=== PATIENT | female | born 1955 | race Caucasian/White ===

== ENCOUNTER → 2018-08-18 12:08 | Outpatient (CLI) | payer OTHER, SELFPAY ==
--- NOTE | 2018-08-18 | DI.MG.S_ITS ---
BILATERAL DIGITAL SCREENING MAMMOGRAM 3D/2D WITH CAD: 08/18/2018 CLINICAL: Routine screening. Family history of breast cancer. Comparison is made to exams dated: 06/08/2017 mammogram, 03/22/2016 mammogram, and 11/21/2014 mammogram - [facility]. The tissue of both breasts is extremely dense, which lowers the sensitivity of mammography. Current study was also evaluated with a Computer Aided Detection (CAD) system. There are benign vascular calcifications in both breasts. No significant masses, calcifications, or other findings are seen in either breast. There has been no significant interval change. IMPRESSION: There is no mammographic evidence of malignancy. A 1 year screening mammogram is recommended. This exam was interpreted at Station ID: [id number]. NOTE: For mammograms, a report in lay terms will be sent to the patient. Approximately 15% of breast malignancies will not be visualized mammographically. In the management of a palpable breast mass, a negative mammogram must not discourage biopsy of a clinically suspicious lesion. Electronically Signed By: Timoteo [email or web address]:08/18/2018 18:25:07 letter sent: Normal Exam ACR BI-RADS Category 2: Benign Finding(s) 3342F
== END ==
PROVIDERS: PCP Family Medicine; Visit Provider Family Medicine
DX: Z12.31 Encounter for screening mammogram for malignant neoplasm of breast (principal); Z80.3 Family history of malignant neoplasm of breast; M81.0 Age-related osteoporosis without current pathological fracture; Z78.0 Asymptomatic menopausal state; Z82.62 Family history of osteoporosis
CPT/HCPCS: 77063; 77067; 77080

== ENCOUNTER → 2018-08-30 14:18 | Outpatient (CLI) | payer OTHER, SELFPAY ==
--- NOTE | 2018-08-30 | DI.RAD.S_ITS ---
PROCEDURE: XR CHEST 2V INDICATIONS: COUGH TECHNIQUE: 2 views of the chest were acquired. COMPARISON: None. FINDINGS: Surgical changes and devices: There are surgical clips in the gallbladder fossa. Lungs and pleura: There is a small nodular infiltrate in the left upper lobe. No pleural effusions or pneumothorax. Mediastinum: Mediastinal contours are normal. Heart size is normal. Bones and chest wall: No suspicious bony abnormalities. Soft tissues appear unremarkable. IMPRESSION: Small nodular infiltrate in the left upper lobe suspicious for developing pneumonia. Recommend a short interval followup standard 2 view chest x-ray after adequate treatment to rule out a lung nodule. Dictated by: Marie Ang M.D. on 08/30/2018 at 15:01 Approved by: Marie Ang M.D. on 08/30/2018 at 15:04
== END ==
PROVIDERS: PCP Family Medicine; Visit Provider Family Medicine
DX: R05 Cough (principal); R91.8 Other nonspecific abnormal finding of lung field; R52 Pain, unspecified
CPT/HCPCS: 71046; 87400

== ENCOUNTER → 2018-08-30 14:34 | Outpatient (REF) | payer OTHER, SELFPAY ==
[2018-08-30 14:59] LABS: Influenza A and B by PCR Rapid Negative (Negative)
== END ==
LOC: LAB 14:34
PROVIDERS: PCP Family Medicine; Visit Provider Family Medicine
DX: R05 Cough (principal); R52 Pain, unspecified
CPT/HCPCS: 87400

== ENCOUNTER → 2018-09-12 12:09 | Outpatient (CLI) | payer OTHER, SELFPAY ==
--- NOTE | 2018-09-12 | DI.CT.S_ITS ---
PROCEDURE: CT CHEST W CON INDICATIONS: Cough TECHNIQUE: After the administration of intravenous contrast, 5 mm thick sections acquired from the pulmonary apices to the posterior costophrenic angles. 7 mm thick coronal and sagittal MIP reformats were acquired. For radiation dose reduction, the following was used: automated exposure control, adjustment of mA and/or kV according to patient size. COMPARISON: [facility], CR, XR CHEST 2V, 08/30/2018, 14:37. FINDINGS: Image quality: Excellent. Lungs and pleura: No acute air space opacities. No pleural effusions or pneumothorax. Central and peripheral airways are patent and normal in caliber. Mediastinum: Heart size is normal. No pericardial effusion. No mediastinal or hilar adenopathy by size criteria. Thoracic aorta and central pulmonary arteries are normal in size. Esophagus is normal in caliber. No hiatal hernia. Bones and chest wall: No suspicious bony lesions. No vertebral body compression fractures. No axillary or supraclavicular adenopathy by size criteria. Thyroid gland is unremarkable. Abdomen: Visualized upper abdominal solid organs appear normal. Upper abdominal bowel loops are normal in caliber. IMPRESSION: 1. Lungs are clear. Previous area of questionable nodularity on chest x-ray is not visualized on current exam. Dictated by: Yarelis Lang M.D. on 09/12/2018 at 14:36 Approved by: Yarelis Lang M.D. on 09/12/2018 at 14:40
== END ==
PROVIDERS: PCP Family Medicine; Visit Provider Family Medicine
DX: R05 Cough (principal)
CPT/HCPCS: 71260; Q9967

== ENCOUNTER → 2018-09-29 14:45 | Outpatient (CLI) | payer OTHER, SELFPAY ==
--- NOTE | 2018-09-29 | DI.CT.S_ITS ---
PROCEDURE: CT SINUS SCREEN WO CON INDICATIONS: SINUITUS TECHNIQUE: Noncontrast 3.0 mm axial images acquired from the frontal sinuses to the mid-sella, with coronal and sagittal reformats. For radiation dose reduction, the following was used: automated exposure control, adjustment of mA and/or kV according to patient size. COMPARISON: None. FINDINGS: Image quality: Excellent. Maxillary Sinuses: No bony remodeling or destruction. Sinuses are clear. Ethmoid Air Cells: No bony remodeling or destruction. Sinuses are clear. Sphenoid Sinuses: No bony remodeling or destruction. Sinuses are clear. Frontal Sinuses: No bony remodeling or destruction. Sinuses are clear. Ostiomeatal Complexes: Ostiomeatal complexes are patent. No Bladimir cells. Miscellaneous: Visualized intra-orbital contents are normal. No liz bullosa or paradoxical turbinate curvature. No nasal septal deviation. IMPRESSION: No sinusitis found, source of current symptoms is not identified. Dictated by: Sawyer Hutton M.D. on 09/29/2018 at 15:09 Approved by: Sawyer Hutton M.D. on 09/29/2018 at 15:10
== END ==
PROVIDERS: PCP Family Medicine; Visit Provider Family Medicine
DX: J01.90 Acute sinusitis, unspecified (principal); R05 Cough
CPT/HCPCS: 70486

== ENCOUNTER → 2019-03-29 12:42 | Outpatient (CLI) | payer OTHER, SELFPAY | PROVIDERS: PCP Family Medicine; Visit Provider Family Medicine | DX: R20.2 Paresthesia of skin (principal) | CPT/HCPCS: 95885; 95886; 95911 ==

== ENCOUNTER → 2020-05-03 08:16 | Outpatient (CLI) | payer OTHER, SELFPAY ==
--- NOTE | 2020-05-03 08:33 | DI.MG.S_ITS ---
Patient Name: AMADOU RAMOS date: 1955 Sex: F Attending Physician: Ish Indications: Date: 05/03/2020 08:23 At the request of: JAYLON EPPS Procedure: MM screening mammo BI BILATERAL DIGITAL SCREENING MAMMOGRAM 3D/2D WITH CAD: 05/03/2020 CLINICAL: Routine screening. Family history of breast cancer. Comparison is made to exams dated: 08/18/2018 mammogram - [facility], 06/08/2017 mammogram, and 03/22/2016 mammogram - [facility]. The tissue of both breasts is extremely dense, which lowers the sensitivity of mammography. Current study was also evaluated with a Computer Aided Detection (CAD) system. There are benign vascular calcifications in both breasts. No significant masses, calcifications, or other findings are seen in either breast. There has been no significant interval change. IMPRESSION: BENIGN There is no mammographic evidence of malignancy. A 1 year screening mammogram is recommended. This exam was interpreted at Station ID: [id number]. NOTE: For mammograms, a report in lay terms will be sent to the patient. Approximately 15% of breast malignancies will not be visualized mammographically. In the management of a palpable breast mass, a negative mammogram must not discourage biopsy of a clinically suspicious lesion. Electronically Signed By: Ariel [email or web address]:05/05/2020 08:01:39 letter sent: Normal Exam ACR BI-RADS Category 2: Benign Finding(s) 3342F
== END ==
PROVIDERS: PCP Family Medicine; Referring Provider Family Medicine; Visit Provider Family Medicine
DX: Z12.31 Encounter for screening mammogram for malignant neoplasm of breast (principal)
CPT/HCPCS: 77063; 77067

== ENCOUNTER → 2020-07-18 12:23 | Outpatient (CLI) | payer MEDICARE, SELFPAY ==
[2020-07-18] MEDS: COVID-19 VACC #1, MRNA(MOD) 100 MCG/0.5 ML VIAL IM (12:28)
== END ==
PROVIDERS: PCP Family Medicine; Visit Provider Internal Medicine
DX: Z23 Encounter for immunization (principal)
CPT/HCPCS: 0011A; 91301

== ENCOUNTER → 2020-08-14 14:45 | Outpatient (CLI) | payer MEDICARE, SELFPAY ==
[2020-08-14] MEDS: COVID-19 VACC #2, MRNA(MOD) 100 MCG/0.5 ML VIAL IM (14:52)
== END ==
PROVIDERS: PCP Family Medicine; Visit Provider Internal Medicine
DX: Z23 Encounter for immunization (principal)
CPT/HCPCS: 0012A; 91301